=== PATIENT | male | born 1975 | race Caucasian/White ===

== ENCOUNTER 2023-12-17 06:23 | Day surgery (SDC) | payer BC, SELFPAY ==
[2023-12-03 08:39] LABS: Hematocrit 45.8 % (39.0-52.0); Hemoglobin 15.9 g/dL (13.0-18.0); Mean Corp Hgb Conc. 34.7 g/dL (33.0-37.0); Mean Corpuscular Hgb 31.2 pg (27.0-31.0); Mean Platelet Volume 10.3 fL (7.4-10.4); Platelet Count 198 10^3/uL (130-400); Red Blood Cell Count 5.09 10^6/uL (4.70-6.10); Red Cell Dist. Width 11.9 % (11.5-14.5); White Blood Cell Count 4.3 10^3/uL (4.8-10.8)
[2023-12-03 09:04] LABS: Blood Urea Nitrogen 18 mg/dl (9-20); Calcium 9.2 mg/dl (8.4-10.2); Carbon Dioxide 27 mmol/L (22-30); Chloride 102 mmol/L (98-107); Glucose 98 mg/dl (70-99); Potassium 4.3 mmol/L (3.5-5.1); Sodium 139 mmol/L (135-145); eGFR > 60.00
[2023-12-03 16:41] VITALS: BMI 38.4
[2023-12-17] VITALS (8 sets, daily range): BP systolic 123–135; BP diastolic 80–89; BMI 38.4
[2023-12-17] MEDS: TYLENOL 1000 MG PO (08:37)
[2023-12-17] MEDS: NORMOSOL-R 1000 IV (09:01)
--- NOTE | 2023-12-17 09:50 | HP.FOC2 ---
Focused History & Physical
Chief Complaint
HPI:
Chief Complaint: Umbilical hernia
HPI / Indication for Planned Procedure: Patient is a 48-year-old male recently seen in outpatient surgical evaluation secondary to a longstanding history of swelling in the region of his umbilicus. This is slightly increased in size over the years
and he has an awareness of the hernia being present. He presents today for scheduled operative correction.
Relevant Past Medical History: Hypertension
Relevant Social History: Negative
Relevant Family History: Negative
Relevant Past Surgical History: Negative
Review of Systems
Review of Pertinent Systems: All Systems Negative
Medication
See Medication form for detailed medications: Yes
Medication List (including Herbals & OTC):
losartan 50 mg tablet 50 mg PO DAILY 12/12/23
multivitamin 1 tab PO DAILY 12/12/23
Medications Reviewed: Yes
Allergies and Reactions
Patient has Allergies: No
Noted Allergies and Reactions:
Allergy/AdvReac Type Severity Reaction Status Date / Time
No Known Allergies Allergy Verified 12/17/23 08:36
Pertinent Physical Exam
All Other Systems: Negative
Head/Neck: Normal
Lungs: Normal
Heart: Normal
Abdomen: Other (Umbilical hernia)
Extremities: Normal
Neurological: Normal
Diagnosis / Assessment
Assessment: 48-year-old male presenting for scheduled operative correction umbilical hernia.
Plan / Procedure
Robotic assisted laparoscopic repair umbilical hernia with mesh
Anesthesia/Sedation to be done by Anesthesia Provider: Yes
--- NOTE | 2023-12-17 09:53 | W.SUR.PREOP ---
Pre-Operative Surgical Note
-
I have examined this patient prior to the performance of the scheduled procedure.
The patient's condition is unchanged from the time of the current History and
Physical and the patient is able to undergo the scheduled procedure.
--- NOTE | 2023-12-17 12:08 | W.IMMPOSTOP ---
Addendum entered and electronically signed by Iron Chin MD 12/19/23 07:26:
#[id number]
Original Note:
Surgical Immed Post Op Note
-
Primary Surgeon: Elsy
Assisting Surgeon: Brenda
Pre-op Diagnosis: UH
Post-op Diagnosis: UH x 2cm
Procedure Performed: RAL CLAUDE UHR with mesh; 63o28gt soft mesh
Anesthesia Type: GETA + 0.25% Marcaine
Specimen / Cultures: none
Estimated Blood Loss: 6mL
Complications: none immediate
Operative Findings: UH 2cm, reducible. CLAUDE repair with 84o29gj soft mesh and closure of fascia with 0 PDS
[2023-12-17] MEDS: DEMEROL 12.5 MG IV (12:36)
== END 2023-12-17 14:03 | disposition home or self-care (01) ==
LOC: SDS 06:23
PROVIDERS: ATTENDING PHYSICIAN Surgery; FAMILY PHYSICIAN Family Medicine
DX: K42.9 Umbilical hernia without obstruction or gangrene (principal)
CPT/HCPCS: 49591; 36415; 80048; 85027; 93005; C1781